=== PATIENT | male | born 1990 | race Two or more races ===

== ENCOUNTER 2018-07-31 16:38 | Emergency (ER) | payer MEDICAID ==
[~2018-07-31] VITALS: Ht 172.7 cm; Wt 77.1 kg
[2018-07-31 17:04] VITALS: BP 126/71
[2018-07-31] MEDS ORDERED: cefTRIAXone SOD 1,000 MG VL IM ONE (17:45)
== END 2018-07-31 17:53 | disposition home or self-care (01) ==
LOC: ER 16:45
DX: K04.7 Periapical abscess without sinus (principal)
CPT/HCPCS: 41800; 96372; 99283; J0696